=== PATIENT | female | born 1945 | race Caucasian/White ===

== ENCOUNTER 2017-01-06 18:04 | Observation (INO) | payer MEDICARE, BC ==
--- NOTE | ~2017-01-06 | HP ---
History And Physical [place] [id number] [facility] [place]. [address] NAME: PRITI VIGIL : 47 STATUS : ADM Soledad PAT#: [id number] AGE: 71 ADM/REG DATE : 01/06/17 MR#: [id number] REPORT SERV DATE: 01/07/17 DICTATED BY: DESIRE GRIFFIN DATE: 01/07/17 REPORT STATUS : Draft TRANSCRIBED BY: MODJaimee DATE: 01/07/17 DATE OF ADMISSION: 01/06/2017 WEBSITE ADMIN: James Fraga M.D., Ph.D, F.A.C.C. CHIEF COMPLAINT: Chest tightness and fatigue. HISTORY OF PRESENT ILLNESS: A very pleasant, 71-year-old white female with no known history of CAD, but status post fnmzi-if-cxchl TAVR in 08/2015 with known yhyjbyfn-er-qqdxyc tricuspid regurgitation by echo in 08/2015. The patient presents with reports of fatigue, "zero energy," and also episodes of chest tightness that at times radiates to her left jaw, left arm, and teeth. This has been episodic over the past several months. 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 She reports associated nausea, diaphoresis, dizziness, and belching. The patient denies any personal history of myocardial infarction, stroke, DVT, or pulmonary embolus. The patient denies any recent fever or chills. Describes a rare palpitations, though some events occurring one to two weeks prior she consumes six to eight cups of coffee per day. No syncopal episodes. Denies PND or orthopnea. PAST MEDICAL HISTORY: 1. Hypertension. 2. Dyslipidemia. 3. Denies diabetes. 4. Hypothyroid, on replacement. 5. Komte-mo-rljzb TAVR in 08/2015 with a 23-mm CE XT. 6. Pacemaker for bradycardia and NSVT. 7. Depression. 8. Positive family history for early CAD. PAST SURGICAL HISTORY: 1. Aortic valve replaced in 2000 with TAVR in 2014. 2. Bilateral knee replacements. 3. Hysterectomy. 4. Hemorrhoidectomy. 5. Right shoulder surgery. SOCIAL HISTORY: She is with three children. Retired. Does not have an exercise routine. Denies tobacco, alcohol, or illicits. FAMILY HISTORY: Father with a stroke in his 60s, in his 80s. REVIEW OF SYSTEMS: A 14-point review of systems performed, significant for HPI. No other contributory History And Physical [address] [place]. [address] NAME: PRITI VIGIL : 47 STATUS : ADM Soledad PAT#: [id number] AGE: 71 ADM/REG DATE : 01/06/17 MR#: [id number] REPORT SERV DATE: 01/07/17 DICTATED BY: DESIRE GRIFFIN DATE: 01/07/17 REPORT STATUS : Draft TRANSCRIBED BY: BEKAH DATE: 01/07/17 diagnoses identified. ALLERGIES: PENICILLIN, STATINS, MUSCLE PAIN; HYDROCODONE, CRAZY; CELEBREX, HIVES. HOME MEDICATIONS: Aspirin 81 mg daily, Tenormin 12.5 mg twice daily, Caltrate daily, Menest nightly, levothyroxine 50 mcg daily, probiotic daily, red yeast, Centrum, Zoloft 50 mg nightly, Maxzide 25 mg daily, magnesium daily, Lasix 20 mg daily, and potassium 10 mEq daily. PHYSICAL EXAMINATION: VITAL SIGNS: Blood pressure 122/59, pulse 60, respirations 22, temperature 98.3, O2 saturation 97% on room air. Height 4 feet 11 inches, weight 117 pounds, BMI 23. GENERAL: Cooperative, in no apparent distress. HEENT: Pupils 2 mm, sclera nonicteric. Nares patent. Moist mucous membranes. No xanthelasma. NECK: Trachea midline, no thyromegaly. No JVD. No bruits. LYMPH: No cervical lymphadenopathy. No supraclavicular lymphadenopathy. RESPIRATORY: Unlabored respirations. Breath sounds clear bilaterally to posterior auscultation. No wheezes or rhonchi. CARDIOVASCULAR: Regular rate. No rub or gallop appreciated. 2/6 holosystolic murmur. Extremities with trace ankle edema. Pulses 2+ bilaterally. ABDOMEN: Soft, nontender, nondistended, normal bowel sounds auscultated throughout. No organomegaly. SKIN: Warm, dry extremities. No pallor, or cyanosis. PSYCHIATRIC: Appropriate affect. Alert, oriented x3. LABORATORY DATA: Troponin 0.03, 0.03, and 0.04. TSH is 0.872. Potassium 3.6, BUN 24, creatinine 1.11, glucose 99, and magnesium 1.8. WBC 6.4, hemoglobin 11.9, hematocrit 34.9, platelet count 148,000. EKG: Atrial paced. Echo 08/20/2015: EF 55%. Moderate pulmonary hypertension. Mgenvnkp-fb-wqfjvg TR. Status post TAVR without residual regurgitation. Cath 07/2015 (Negus): No significant CAD. EF of 60% leading to TAVR. ASSESSMENT AND PLAN: 1. Chest pain. N.p.o. The patient has been observed in the CPOU overnight to rule out myocardial infarction. Held n.p.o. for vasodilator stress test today. Home if negative study to follow up with PCP and Dr. Fraga as appropriate. 2. Murmur, vajsdfpg-wk-yvhkyg TR with stable TAVR IN 08/2015. Consider recheck echo on an outpatient basis with Cardiology. 3. Hypertension. Well managed. Continue home medications. 4. Dyslipidemia. Continue statin. History And Physical [address] [address] NAME: PRITI VIGIL : 47 STATUS : ADM Soledad PAT#: [id number] AGE: 71 ADM/REG DATE : 01/06/17 MR#: [id number] REPORT SERV DATE: 01/07/17 DICTATED BY: DESIRE GRIFFIN DATE: 01/07/17 REPORT STATUS : Draft TRANSCRIBED BY: BEKAH DATE: 01/07/17 MANSI/BEKAH HAROON Johns, BUSBOY-BC / [id number] CC: Desire Griffin, HAROON, BUSBOY-BC Rodrigo May Jr., MLenny. James Fraga M.D., Ph.D, F.A.C.C.
[2017-01-06 15:03] LABS: BASOPHILS 0.3 %; BASOPHILS ABSOLUTE 0.02 10/3/uL (0.0-0.16); EOSINOPHILS 1.1 %; EOSINOPHILS ABSOLUTE 0.07 10/3/uL (0.0-0.53); IMMATURE GRANULOCYTES 0.2 %; IMMATURE GRANULOCYTES ABSOLUTE 0.01 10/3/uL (0.0-0.11); LYMPHOCYTES 30.5 %; LYMPHOCYTES ABSOLUTE 1.96 10/3/uL (0.67-4.30); MEAN CORPUS HGB CONC 34.1 g/dL (32.0-36.0); MEAN CORPUSCULAR HEMOGLOB 32.3 pg (26.0-34.0); MEAN PLATELET VOLUME 9.8 fL (9.2-13.0); MONOCYTES 6.5 %; MONOCYTES ABSOLUTE 0.42 10/3/uL (0.21-1.20); NEUTROPHILS 61.4 %; NEUTROPHILS ABSOLUTE 3.94 10/3/uL (2.02-8.40); RBC DISTRIBUTION WIDTH 12.8 % (12.0-16.0); WHITE BLOOD CELLS 6.4 10/3/uL (4.5-10.5)
[2017-01-06 15:05] LABS: HEMATOCRIT 34.9 % (36.0-48.0); HEMOGLOBIN 11.9 g/dL (12.0-16.0); MANUAL DIFF NO %; MEAN CORPUSCULAR VOLUME 94.8 fL (80-100); PLATELET COUNT 148 10/3/uL (150-400); RED CELL COUNT 3.68 10/6/uL (4.0-5.6)
[2017-01-06 15:11] LABS: PARTIAL THROMBO TIME 27.5 SEC (22.5-37.2); PROTIME (NOT ORD) 12.9 SEC (12.0-14.5)
[2017-01-06 15:19] LABS: CHEST PAIN PROFILE TAT 0 Hrs 22 Mins; CHLORIDE, SERUM 100 MMOL/L (96-112); CO2 (CARBON DIOXIDE) 33 MMOL/L (24-34); CREATININE 1.11 MG/DL (0.55-1.02); GFR AFRICAN AMERICAN 58 ML/MIN (>=60); GFR NON AFRICAN AMERICAN 50 ML/MIN (>=60); GLUCOSE, SERUM 99 MG/DL (60-99); POTASSIUM, SERUM 3.6 MMOL/L (3.5-5.3); SODIUM, SERUM 142 MMOL/L (135-148); TROPONIN I 0.03 NG/ML (<0.05)
[2017-01-06 15:21] LABS: BUN (BLOOD UREA NITROGEN) 24 MG/DL (6-23)
[~2017-01-06 18:04] MED LIST: ACIDOPHILU1 PO; ASAB PO; ATEN25 PO; CALTRA600D PO; CENTRUM TAB1 TAB PO; FISH-EPA1000 MG PO; LEVOTHYROXIN50 MCG PO; MAGTRATE500 MG PO; MAX25 PO; MENEST0.625 MG PO; MULTIPLE VIT PO; MVI PO; NEXIUM40 PO; OS500+D PO; PLAVIX PO; PRAVAC PO; PRAVACHOL40 MG PO; PREM9 PO; PROBIOTIC ACID PO; PROZ10 PO; PROZAC PO; STRESS600T PO; ULTRAM PO
[2017-01-06] MEDS ORDERED: ATEN25 PO (19:28)
[2017-01-06] MEDS ORDERED: LEVOTHYROXIN50 MCG PO (19:28)
[2017-01-06] MEDS ORDERED: MAX25 PO (19:28)
[2017-01-06] MEDS ORDERED: CENTRUM PO (19:28)
[2017-01-06] MEDS ORDERED: RED YEAS1 PO ×2 (19:29)
[2017-01-06] MEDS ORDERED: ASAB PO (19:29)
[2017-01-06] MEDS ORDERED: ALIGN4 MG PO (19:29)
[2017-01-06] MEDS ORDERED: MENEST0.625 MG PO (19:30)
[2017-01-06] MEDS ORDERED: ZOL50 PO (19:30)
[2017-01-06] MEDS ORDERED: CALTRA600D PO (19:30)
[2017-01-06] MEDS ORDERED: MAGNESIUM PO (19:33)
[2017-01-06 21:17] LABS: ULTRASENSITIVE TSH 0.872 MCIU/ML (0.358-3.740)
[2017-01-07] MEDS ORDERED: L20 PO (15:53)
[2017-01-07] MEDS ORDERED: KLOR-CON 1010 MEQ PO (15:54)
== END 2017-01-07 17:08 | disposition home or self-care (01) ==
LOC: ER 18:04 → CDU1 19:27 → CDU2 21:01
PROVIDERS: Emergency Medicine
DX: R07.9 Chest pain, unspecified (principal); I10 Essential (primary) hypertension; R01.1 Cardiac murmur, unspecified; E78.5 Hyperlipidemia, unspecified; E03.9 Hypothyroidism, unspecified; F32.9 Major depressive disorder, single episode, unspecified; Z90.710 Acquired absence of both cervix and uterus; Z98.890 Other specified postprocedural states; Z88.0 Allergy status to penicillin; Z88.8 Allergy status to other drugs, medicaments and biological substances; Z79.82 Long term (current) use of aspirin; Z79.899 Other long term (current) drug therapy
CPT/HCPCS: 71020; 78452; 80048; 83735; 84443; 84484; 85025; 85610; 85730; 93005; 93017; 99285; A9270-GY; A9502; G0378; J0153